=== PATIENT | male | born 1965 | race Caucasian/White ===

== ENCOUNTER 2022-10-16 23:49 | Emergency (ER) | payer OTHER ==
[~2022-10-16] VITALS: Ht 175.2 cm; Wt 90.7 kg
--- NOTE | 2022-10-17 00:03 | ED Abdominal Pain ---
General Stated Complaint: LOWER ABDOM PAIN History of Present Illness Date Seen by Provider: Oct 17, 2022 Time Seen by Provider: 12:01 Initial Comments 57-year-old male with no significant PMH is here with complaints of right upper quadrant pain which began about approximately 4 hours ago. Pain level is 10/10, and associated with nausea and vomiting. Patient had macaroni and cheese with black pepper for dinner around 4 PM. Pain was sudden onset. Denies fever and chills, diarrhea, constipation, abdominal distention, chest pain. No known sick contacts. Allergies and Home Medications Allergies Coded Allergies: No Known Drug Allergies (Unverified , 10/17/22) Patient Home Medication List Home Medication List Reviewed: Yes Review of Systems Review of Systems Constitutional: no symptoms reported EENTM: No Symptoms Reported Respiratory: No Symptoms Reported Cardiovascular: No Symptoms Reported Gastrointestinal: Abdominal Pain, Nausea, Vomiting Genitourinary: No Symptoms Reported Musculoskeletal: no symptoms reported Skin: no symptoms reported Psychiatric/Neurological: No Symptoms Reported Endocrine: No Symptoms Reported Hematologic/Lymphatic: No Symptoms Reported Physical Exam Vital Signs Vital Signs - First Documented 10/16/22 23:54 Temp 36.4 Pulse 61 Resp 18 B/P (MAP) 158/99 (118) Pulse Ox 100 O2 Delivery Room Air Capillary Refill : Height/Weight/BMI Height: '" Weight: lbs. oz. kg; BMI Method: General Appearance: WD/WN, moderate distress HEENT: PERRL/EOMI Neck: full range of motion Respiratory: chest non-tender, lungs clear, normal breath sounds, no respiratory distress Cardiovascular: regular rate, rhythm Gastrointestinal: normal bowel sounds, soft, no organomegaly, no pulsatile mass, tenderness (Right upper quadrant tenderness present) Back: normal inspection, no CVA tenderness Neurologic/Psychiatric: alert, normal mood/affect, oriented x 3 Skin: normal color Progress/Results/Core Measures Results/Orders Lab Results Laboratory Tests Test 10/17/22 00:01 10/17/22 02:21 Range/Units White Blood Count 16.3 H 4.3-11.0 10^3/uL Red Blood Count 4.76 4.30-5.52 10^6/uL Hemoglobin 14.7 13.3-17.7 g/dL Hematocrit 43 40-54 % Mean Corpuscular Volume 90 80-99 fL Mean Corpuscular Hemoglobin 31 25-34 pg Mean Corpuscular Hemoglobin Concent 34 32-36 g/dL Red Cell Distribution Width 12.2 10.0-14.5 % Platelet Count 307 130-400 10^3/uL Mean Platelet Volume 9.9 9.0-12.2 fL Immature Granulocyte % (Auto) 0 % Neutrophils (%) (Auto) 76 H 42-75 % Lymphocytes (%) (Auto) 16 12-44 % Monocytes (%) (Auto) 7 0-12 % Eosinophils (%) (Auto) 1 0-10 % Basophils (%) (Auto) 1 0-10 % Neutrophils # (Auto) 12.4 H 1.8-7.8 10^3/uL Lymphocytes # (Auto) 2.5 1.0-4.0 10^3/uL Monocytes # (Auto) 1.1 H 0.0-1.0 10^3/uL Eosinophils # (Auto) 0.1 0.0-0.3 10^3/uL Basophils # (Auto) 0.1 0.0-0.1 10^3/uL Immature Granulocyte # (Auto) 0.1 0.0-0.1 10^3/uL Neutrophils % (Manual) 82 % Lymphocytes % (Manual) 12 % Monocytes % (Manual) 6 % Sodium Level 136 135-145 MMOL/L Potassium Level 3.8 3.6-5.0 MMOL/L Chloride Level 99 98-107 MMOL/L Carbon Dioxide Level 23 21-32 MMOL/L Anion Gap 14 5-14 MMOL/L Blood Urea Nitrogen 20 H 7-18 MG/DL Creatinine 0.84 0.60-1.30 MG/DL Estimat Glomerular Filtration Rate 103 BUN/Creatinine Ratio 24 Glucose Level 152 H 70-105 MG/DL Calcium Level 9.4 8.5-10.1 MG/DL Corrected Calcium 9.1 8.5-10.1 MG/DL Total Bilirubin 0.5 0.1-1.0 MG/DL Aspartate Amino Transf (AST/SGOT) 15 5-34 U/L Alanine Aminotransferase (ALT/SGPT) 10 0-55 U/L Alkaline Phosphatase 80 40-136 U/L Troponin I < 0.30 <0.30 NG/ML Total Protein 7.5 6.4-8.2 GM/DL Albumin 4.4 3.2-4.5 GM/DL Lipase 32 8-78 U/L Serum Alcohol < 10 <10 MG/DL Urine Color YELLOW Urine Clarity CLEAR Urine pH 5.0 5-9 Urine Specific [place] 1.015 L 1.016-1.022 Urine Protein NEGATIVE NEGATIVE Urine Glucose (UA) NEGATIVE NEGATIVE Urine Ketones 1+ H NEGATIVE Urine Nitrite NEGATIVE NEGATIVE Urine Bilirubin NEGATIVE NEGATIVE Urine Urobilinogen 0.2 < = 1.0 MG/DL Urine Leukocyte Esterase NEGATIVE NEGATIVE Urine RBC (Auto) 1+ H NEGATIVE Urine RBC 2-5 H /HPF Urine WBC RARE /HPF Urine Crystals NONE /LPF Urine Bacteria NEGATIVE /HPF Urine Casts NONE /LPF Urine Mucus NEGATIVE /LPF Urine Culture Indicated NO Urine Opiates Screen NEGATIVE NEGATIVE Urine Oxycodone Screen NEGATIVE NEGATIVE Urine Methadone Screen NEGATIVE NEGATIVE Urine Propoxyphene Screen NEGATIVE NEGATIVE Urine Barbiturates Screen NEGATIVE NEGATIVE Ur Tricyclic Antidepressants Screen NEGATIVE NEGATIVE Urine Phencyclidine Screen NEGATIVE NEGATIVE Urine Amphetamines Screen NEGATIVE NEGATIVE Urine Methamphetamines Screen NEGATIVE NEGATIVE Urine Benzodiazepines Screen NEGATIVE NEGATIVE Urine Cocaine Screen NEGATIVE NEGATIVE Urine Cannabinoids Screen NEGATIVE NEGATIVE My Orders Orders - MULUGETA SHAW MD Alcohol (10/17/22 00:03) Cbc With Automated Diff (10/17/22 00:03) Comprehensive Metabolic Panel (10/17/22 00:03) Drug Screen Stat (Urine) (10/17/22 00:03) Lactic Acid Analyzer (10/17/22 00:03) Lipase (10/17/22 00:03) Ua Culture If Indicated (10/17/22 00:03) Troponin I Fs (10/17/22 00:03) Ct Abdomen/Pelvis W (10/17/22 00:31) Fentanyl Inj (Sublimaze Injection) (10/17/22 00:15) Ondansetron Injection (Zofran Injectio (10/17/22 00:15) 1/2 Ns Iv Solution (0.45% Sodium Chlorid (10/17/22 00:12) Manual Differential (10/17/22 00:01) Famotidine Injection (Pepcid Injection) (10/17/22 00:30) Iohexol Injection (Omnipaque 350 Mg/Ml 1 (10/17/22 00:30) Di Iv Start (Assessment) .IV start (10/17/22 00:29) Received Contrast (Hold Metformin- Contr (10/17/22 00:30) Ns (Ivpb) (Sodium Chloride 0.9% Ivpb Bag (10/17/22 00:30) Ketorolac Injection (Toradol Injection) (10/17/22 01:00) Ed Iv/Invasive Line Start (10/17/22 02:22) Medications Given in ED Current Medications Medications Dose Ordered Sig/Michael Route Start Time Stop Time Status Last Admin Dose Admin Famotidine 20 mg ONCE ONCE IVP 10/17/22 00:30 10/17/22 00:31 DC 10/17/22 00:39 20 MG Fentanyl Citrate 50 mcg ONCE ONCE IVP 10/17/22 00:15 10/17/22 00:16 DC 10/17/22 00:22 50 MCG Iohexol 80 ml ONCE ONCE IV 10/17/22 00:30 10/17/22 00:31 DC 10/17/22 00:56 80 ML Ketorolac Tromethamine 15 mg ONCE ONCE IVP 10/17/22 01:00 10/17/22 01:01 DC 10/17/22 01:03 15 MG Ondansetron HCl 4 mg ONCE ONCE IVP 10/17/22 00:15 10/17/22 00:16 DC 10/17/22 00:21 4 MG Sodium Chloride 100 ml ONCE ONCE IV 10/17/22 00:30 10/17/22 00:31 DC 10/17/22 00:56 100 ML Vital Signs/I&O 10/16/22 23:54 Temp 36.4 Pulse 61 Resp 18 B/P (MAP) 158/99 (118) Pulse Ox 100 O2 Delivery Room Air Progress Progress Note : Progress Note 1. RUQ PAIN: - CT ABD : No acute finding - CBC: WBC is 16.3 - CMP: Unremarkable - UA/ UDS: negative - s. ETOH: Negative - Fentanyl 50mcg iv / Zofran 4mg iv / 0.45% NS IVF, then Toradol 15mg iv - Take home medications of Bentyl and Zofran - Follow up with PCP for ultrasound -Work-up has been negative except for mild white count. Patient has been afebrile with stable vitals. Patient's urine drug screen was done after fentanyl was given and it is still negative for everything. Patient was resistant about giving urine until the time nearing discharge. CT Abdomen with oral and IV contrast shows a liver function is normal as well. Patient will need to get an ultrasound for right upper quadrant pain for further assessment. There is no ultrasound available at [place] at this time -The patient was seen in the ED, and treated appropriately to presentation at a specific point in time. Patient is informed that there is a possibility that disease and illness can evolve and change in acuity rapidly or slowly after patient is discharged from the ER. Precautionary advice given to the patient for immediate return to ER if symptoms worsen or do not resolve, and to seek emergency care sooner rather than later. Pt also advised on the importance of PCP follow up and compliance with management and follow up plan with PCP and/or specialist, as this is part of the management plan. Pt verbally expressed understanding.. Diagnostic Imaging Diagonstic Imaging: CT Plain Films/CT/US/NM/MRI: abdomen Departure Impression Primary Impression: Abdominal pain Disposition: 01 HOME, SELF-CARE Condition: Stable Departure-Patient Inst. Patient Instructions: Stomach Ache and Stomach Upset, Nausea and Vomiting, Adult (DC) Add. Discharge Instructions: - Take home medications of Bentyl and Zofran - Follow up with PCP for ultrasound on Wednesday. Call for appointment MULUGETA SHAW MD Oct 17, 2022 00:02
[2022-10-17] MEDS ORDERED: 1/2 NS IV SOLUTION 1,000 ML IV STA (00:12)
[2022-10-17] MEDS ORDERED: fentaNYL INJ 100 MCG/2 ML AMP IVP ONE (00:15)
[2022-10-17] MEDS ORDERED: ONDANSETRON 4 MG/2 ML (SDV) Z0FRAN IVP ONE (00:15)
[2022-10-17 00:20] LABS: BASOPHILS # (AUTO) 0.1 10^3/uL (0.0-0.1); BASOPHILS % (AUTO) 1 % (0-10); EOSINOPHILS # (AUTO) 0.1 10^3/uL (0.0-0.3); EOSINOPHILS % (AUTO) 1 % (0-10); HEMATOCRIT 43 % (40-54); HEMOGLOBIN 14.7 g/dL (13.3-17.7); LYMPHOCYTES # (AUTO) 2.5 10^3/uL (1.0-4.0); LYMPHOCYTES % (AUTO) 16 % (12-44); MEAN CORPUSCULAR HEMOGLOBIN 31 pg (25-34); MEAN CORPUSCULAR HGB CONC 34 g/dL (32-36); MEAN CORPUSCULAR VOLUME 90 fL (80-99); MEAN PLATELET VOLUME 9.9 fL (9.0-12.2); MONOCYTES # (AUTO) 1.1 10^3/uL (0.0-1.0); MONOCYTES % (AUTO) 7 % (0-12); NEUTROPHILS # (AUTO) 12.4 10^3/uL (1.8-7.8); NEUTROPHILS % (AUTO) 76 % (42-75); PLATELET COUNT 307 10^3/uL (130-400); WHITE BLOOD COUNT 16.3 10^3/uL (4.3-11.0)
[2022-10-17] MEDS ORDERED: HOLD METFORMIN - RECEIVED CONTRAST 20 ML VIAL IV SCH (00:30)
[2022-10-17] MEDS ORDERED: FAMOTIDINE 20MG/2ML IV (PEPCID) IVP ONE (00:30)
[2022-10-17] MEDS ORDERED: NS 100 ML (IVPB) BAG IV ONE (00:30)
[2022-10-17] MEDS ORDERED: IOHEXOL 350 MG/ML 100 ML (OMNIPAQUE 350) VIAL IV ONE (00:30)
[2022-10-17 00:42] LABS: BUN/CREATININE RATIO 24; CARBON DIOXIDE 23 MMOL/L (21-32); CHLORIDE 99 MMOL/L (98-107); CREATININE SERUM 0.84 MG/DL (0.60-1.30); GFR ESTIMATED 103; GLUCOSE 152 MG/DL (70-105); POTASSIUM 3.8 MMOL/L (3.6-5.0); SODIUM 136 MMOL/L (135-145)
[2022-10-17 00:43] LABS: ALANINE AMINOTRANSFERASE 10 U/L (0-55); ALBUMIN 4.4 GM/DL (3.2-4.5); ALKALINE PHOSPHATASE 80 U/L (40-136); BILIRUBIN,TOTAL 0.5 MG/DL (0.1-1.0); CALCIUM 9.4 MG/DL (8.5-10.1); LIPASE 32 U/L (8-78); TOTAL PROTEIN 7.5 GM/DL (6.4-8.2)
[2022-10-17 00:49] LABS: LYMPHOCYTES % (MANUAL) 12 %; MONOCYTES % (MANUAL) 6 %; NEUTROPHILS % (MANUAL) 82 %
[2022-10-17] MEDS ORDERED: KETOROLAC 15 MG/ML VIAL IVP ONE (01:00)
[2022-10-17 02:37] LABS: BILIRUBIN,URINE NEGATIVE (NEGATIVE); CLARITY,URINE CLEAR; COLOR,URINE YELLOW; GLUCOSE, URINE (UA) NEGATIVE (NEGATIVE); KETONES,URINE 1+ (NEGATIVE); LEUKOCYTE ESTERASE ,URINE NEGATIVE (NEGATIVE); NITRITE,URINE NEGATIVE (NEGATIVE); PROTEIN,URINE NEGATIVE (NEGATIVE)
[2022-10-17 02:41] LABS: BACTERIA,URINE NEGATIVE /HPF; WBC,URINE RARE /HPF
[2022-10-17 02:50] LABS: AMPHETAMINE SCREEN, URINE NEGATIVE (NEGATIVE); BARBITURATE SCREEN URINE NEGATIVE (NEGATIVE); BENZODIAZEPINES SCREEN URINE NEGATIVE (NEGATIVE); CANNABINOID SCREEN, URINE NEGATIVE (NEGATIVE); COCAINE SCREEN URINE NEGATIVE (NEGATIVE); OPIATE SCREEN URINE NEGATIVE (NEGATIVE)
[2022-10-17 02:51] LABS: METHADONE STAT NEGATIVE (NEGATIVE); OXYCODONE STAT NEGATIVE (NEGATIVE); PROPOXYPHENE STAT NEGATIVE (NEGATIVE); TRICYCLIC ANTIDEPRESSANTS SCRE NEGATIVE (NEGATIVE)
[2022-10-17] MEDS ORDERED: RX-ONDANSETRON 4 MG ODT (ZOFRAN) PPK #4 PO STA (03:02)
[2022-10-17] MEDS ORDERED: RX-DICYCLOMINE 10 MG (BENTYL) CAP PPK#4 PO STA (03:02)
[2022-10-17 03:10] VITALS: BP 142/86
--- NOTE | 2022-10-17 06:57 | Diagnostic Imaging Report ---
PROCEDURE: CT abdomen and pelvis with contrast. TECHNIQUE: Multiple contiguous axial images were obtained through the abdomen and pelvis after administration of intravenous contrast. Auto Exposure Controls were utilized during the CT exam to meet ALARA standards for radiation dose reduction. All CT scans use one or more of the following dose optimizing techniques: automated exposure control, MA and/or KvP adjustment based on patient size and exam type or iterative reconstruction. INDICATION: Right upper quadrant pain. COMPARISON: None. FINDINGS: Lung bases are clear. The liver, gallbladder, pancreas, spleen, adrenals, kidneys, collecting systems and bladder negative. No evidence of appendicitis. Mild colonic diverticulosis. No evidence of active diverticulitis. No free intraperitoneal air or fluid. No lymphadenopathy. No evidence of bowel obstruction. No acute osseous findings. IMPRESSION: No acute cardiopulmonary findings. Agree with preliminary interpretation. Dictated by: Dictated on workstation # [id number]
== END 2022-10-17 03:12 | disposition home or self-care (01) ==
LOC: ER FS 10-17 00:05
DX: R10.11 Right upper quadrant pain (principal); Z28.310 Unvaccinated for COVID-19
CPT/HCPCS: 36415; 74177; 80053; 80306; 81000; 83690; 84484; 85007; 85027; 99283; G0480; 80320; Q9967